=== PATIENT | female | born 1965 | race African-American/Black ===

== ENCOUNTER 2021-04-12 05:52 | Inpatient (IN) | payer OTHER, MEDICAID ==
[2021-04-12] MEDS ORDERED: Adenosine 6 MG/2 ML VIAL ONE (06:15)
[2021-04-12 06:23] LABS: Actual Bicarbonate (HCO3a) 19.7 mEq/L (22-28); Base Excess (BEa) -6.9 mEq/L (-2.0 to +3.0); CO2 Tension 44.4 mmHg (35.0-45.0); Calcium, Ionized (arterial) 1.09 mmol/L (1.12-1.30); Carboxyhemoglobin (COHb) 0.3 gm% (0.0-3.0); O2 Tension (PaO2), arterial 77.3 mmHg (80.0-100.0); Potassium - ABG Lab 3.6 mmol/L (3.70-5.30); Puncture Site RRA; pH, Arterial 7.27 (7.35-7.45)
[2021-04-12 06:33] LABS: ALT (SGPT) 22 U/L (8-55); AST (SGOT) 25 U/L (5-34); Alkaline Phosphatase 79 U/L (40-110); Anion Gap 14 mmol/L (10-20); BUN (Urea Nitrogen) 16 mg/dL (9.8-20.1); Bilirubin, Total 1.4 mg/dL (0.2-1.2); Calc. Creatinine Clearance 0 mL/min (70-130); Calcium 7.5 mg/dL (7.8-10.44); Carbon Dioxide 18 mmol/L (22-29); Chloride 115 mmol/L (98-107); Globulin 3.5 g/dL (2.4-3.5); Glucose 121 mg/dL (70-105); Potassium 3.9 mmol/L (3.5-5.1); Protein, Total 5.5 g/dL (6.0-8.3); Sodium 143 mmol/L (136-145)
[2021-04-12 06:44] LABS: Hemoglobin 8.5 g/dL (12.0-15.5); Mean Corpuscular HGB CONC 35.1 g/dL (32.0-36.0); Mean Corpuscular Volume 76.8 fl (81.6-98.3); Platelet Count 144 10x3/uL (150-450); Red Blood Cell (RBC) Count 3.15 10x6/uL (3.90-5.03)
[2021-04-12 06:55] LABS: CKMB 1.1 ng/mL (0-6.6)
[2021-04-12] MEDS ORDERED: Midazolam In 0.9 % NaCl/PF 100 ML IVPB PRN (07:09)
[2021-04-12] MEDS ORDERED: fentaNYL Citrate/PF 50 MCG/ML (20ML VIAL) ONE (07:20)
[2021-04-12] MEDS ORDERED: Midazolam HCl 2 mg/2 ml Vial ONE (07:26)
[2021-04-12] MEDS ORDERED: Fentanyl 100 MCG/2 ML VIAL ONE (07:27)
[2021-04-12] MEDS ORDERED: fentaNYL Citrate-0.9 % NaCl/PF 100 ML IVPB SCH (07:30)
[2021-04-12] MEDS ORDERED: EPINEPHrine 1 MG/ML AMP ONE (07:42)
[2021-04-12] MEDS ORDERED: EPINEPHrine 1 MG/10 ML Abboject SYRINGE ONE (07:43)
[2021-04-12] MEDS ORDERED: Norepinephrine 8 MG/0.9% NS 250 ML ONE (07:43)
[2021-04-12 07:46] LABS: Band 11 % (5-11); Lymphocytes 1 % (21-51); Monocytes 4 % (0-10); Myelocyte 1 % (0-0)
[2021-04-12 07:52] LABS: Metamyelocyte 2 % (0-0); Neutrophil 81 % (42-75)
[2021-04-12 08:01] LABS: Anisocytosis MODERATE=16-30 cells (100X) (0-5/hpf)
[2021-04-12 08:02] LABS: Hypochromia SLIGHT = 6-15 cells (100X) (0-5/hpf); Macrocytosis SLIGHT = 6-15 cells (100X) (0-5/hpf); Microcytosis SLIGHT = 6-15 cells (100X) (0-5/hpf); Ovalocytes SLIGHT = 2-5 cells (100X) (0-1/hpf); Poikilocytosis SLIGHT = 6-15 cells (100X) (0-5/hpf); Target Cells MODERATE= 6-15 cells (100X) (0-1/hpf)
[2021-04-12 08:03] LABS: Polychromasia SLIGHT = 2-3 cells (100X) (0-2/hpf)
[2021-04-12 08:04] LABS: Burr Cells SLIGHT = 2-5 cells (100X) (0-1/hpf); Large Platelets SLIGHT; Platelet Morphology Comment Appears Adequate; Toxic Granulation SLIGHT
[2021-04-12 08:06] LABS: Vacuoles SLIGHT
[2021-04-12 08:07] LABS: MDiff Complete? YES
[2021-04-12] MEDS ORDERED: Hydrocerin (Eucerin) Cream 120 gm Jar TOP PRN (08:24)
[2021-04-12] MEDS ORDERED: Ondansetron PF 4 MG/2 ML Vial IVP PRN (08:24)
[2021-04-12] MEDS ORDERED: Electrolyte Replacement Protocol 1 EACH IVPB ONE (08:24)
[2021-04-12] MEDS ORDERED: Artificial Tear Sol 15 ML BOT EA EYE PRN (08:24)
[2021-04-12] MEDS ORDERED: Acetaminophen 325 MG TAB PER TUBE PRN (08:24)
[2021-04-12] MEDS ORDERED: Loperamide HCl 2 MG CAP PER TUBE PRN (08:24)
[2021-04-12] MEDS ORDERED: Senokot S 8.6-50 MG TAB PER TUBE PRN (08:24)
[2021-04-12] MEDS ORDERED: Bisacodyl 10 MG SUPP PR PRN (08:24)
[2021-04-12] MEDS ORDERED: Norepinephrine 8 MG/0.9% NS 250 ML IVPB PRN (08:24)
[2021-04-12] MEDS ORDERED: Acetaminophen 650 MG Suppository PR PRN (08:24)
[2021-04-12] MEDS ORDERED: Ventilator Sedation Protocol 1 EACH FS PRN (08:30)
[2021-04-12 08:31] LABS: Actual Bicarbonate (HCO3a) 16.3 mEq/L (22-28); Base Excess (BEa) -9.7 mEq/L (-2.0 to +3.0); CO2 Tension 36.5 mmHg (35.0-45.0); Calcium, Ionized (arterial) 1.06 mmol/L (1.12-1.30); Carboxyhemoglobin (COHb) 0.3 gm% (0.0-3.0); Hemoglobin (Hb) 7.9 g/dL (12.0-16.0); Potassium - ABG Lab 3.5 mmol/L (3.70-5.30); Puncture Site LRA; pH, Arterial 7.27 (7.35-7.45)
[2021-04-12 08:33] LABS: ALV-art Gradient 483.375 mmHg (0-20)
[2021-04-12] MEDS ORDERED: Morphine 2 MG/ML VIAL SLOW IVP PRN (09:00)
[2021-04-12] MEDS ORDERED: Lorazepam 2 MG/ML VIAL SLOW IVP PRN (09:00)
[2021-04-12] MEDS ORDERED: Heparin 5,000 UNITS/ML VIAL SC SCH (09:00)
[2021-04-12] MEDS ORDERED: Propofol BOLUS 1,000 MG/100 ML VIAL IV PRN (09:00)
[2021-04-12] MEDS ORDERED: Fentanyl BOLUS 250 ML IVPB PRN (09:00)
[2021-04-12] MEDS ORDERED: DISCONTINUE PREVIOUS NARCOTIC PAIN MEDICATIONS AND BENZODIAZEPINES FS SCH (09:00)
[2021-04-12] MEDS ORDERED: Enoxaparin Sodium 40 MG/0.4 ML SYRINGE SC SCH (09:00)
[2021-04-12] MEDS ORDERED: Morphine 4 MG/ML VIAL SLOW IVP PRN (09:04)
[2021-04-12] MEDS ORDERED: Electrolyte Replacement Protocol FS PRN (09:15)
[2021-04-12] MEDS ORDERED: Meropenem 1 GM in Sodium Chloride 0.9% 100 ML IVPB SCH (09:30)
[2021-04-12] MEDS: Propofol 1,000 MG/100 ML VIAL IV PRN ×2 (09:32→19:23)
[2021-04-12] MEDS: Sodium Chloride 0.45% 1,000 ML IV SCH ×2 (09:32→21:12)
[2021-04-12] MEDS: Pantoprazole 40 MG VIAL IVP SCH (09:34)
[2021-04-12 10:07] LABS: Lactic Acid 2.2 mmol/L (0.5-2.2)
[2021-04-12] MEDS ORDERED: Enoxaparin Sodium 30 MG/0.3 ML SYRINGE SC SCH (10:15)
[2021-04-12 10:17] LABS: Troponin I 0.145 ng/mL (< 0.028)
[2021-04-12] MEDS ORDERED: Prevnar 13-Val Conj/PF 0.5 ML SYRINGE IM ONE (10:45)
[2021-04-12] MEDS ORDERED: FLU VACC QS2021-22(6MOS UP)/PF 60 MCG/0.5 ML SYRINGE IM ONE (10:45)
[2021-04-12] MEDS ORDERED: Vancomycin HCl 1.25 GM, Admixture Fee 1 EACH in Sodium Chloride 0.9% 250 ML 250 ML IVPB SCH (11:00)
[2021-04-12] MEDS: fentaNYL Citrate-0.9 % NaCl/PF 100 ML IVPB SCH (17:18)
[2021-04-12] MEDS: Meropenem 500 MG in Sodium Chloride 0.9% 100 ML IVPB SCH (17:49)
[2021-04-12] MEDS: Budesonide 0.5 MG/2 ML NEB NEB SCH (19:05)
[2021-04-12] MEDS: Vasopressin 20 UNIT, Admixture Fee 1 EACH in Sodium Chloride 0.9% 50 ML IV PRN (21:27)
[2021-04-12] MEDS: Norepinephrine 8 MG/0.9% NS 250 ML IVPB PRN (21:30)
[2021-04-13] MEDS: Vasopressin 20 UNIT, Admixture Fee 1 EACH in Sodium Chloride 0.9% 50 ML IV PRN ×2 (02:15→11:58)
[2021-04-13] MEDS: Sodium Chloride 0.45% 1,000 ML IV SCH (03:11)
[2021-04-13 03:55] LABS: Mean Corpuscular HGB CONC 35.6 g/dL (32.0-36.0); Mean Corpuscular Hemoglobin 27.1 pg (27.0-33.0); Mean Corpuscular Volume 76.3 fl (81.6-98.3); Mean Platelet Volume 11.3 fl (7.4-10.4); Platelet Count 139 10x3/uL (150-450); RBC Distribution Width 18.7 % (11.5-14.5); Red Blood Cell (RBC) Count 2.95 10x6/uL (3.90-5.03); White Blood Cell (WBC) Count 26.5 10x3/uL (3.5-10.5)
[2021-04-13 04:00] LABS: Lactic Acid 3.2 mmol/L (0.5-2.2)
[2021-04-13 04:04] LABS: ALT (SGPT) 17 U/L (8-55); AST (SGOT) 30 U/L (5-34); Albumin 1.7 g/dL (3.5-5.0); Alkaline Phosphatase 65 U/L (40-110); Anion Gap 13 mmol/L (10-20); BUN (Urea Nitrogen) 18 mg/dL (9.8-20.1); Calc. Creatinine Clearance 30 mL/min (70-130); Calcium 7.1 mg/dL (7.8-10.44); Carbon Dioxide 16 mmol/L (22-29); Chloride 113 mmol/L (98-107); Globulin 3.3 g/dL (2.4-3.5); Glucose 91 mg/dL (70-105); Magnesium 1.4 mg/dL (1.6-2.6); Phosphorus 3.7 mg/dL (2.3-4.7); Potassium 3.8 mmol/L (3.5-5.1); Sodium 138 mmol/L (136-145)
[2021-04-13] MEDS ORDERED: Vancomycin 1 GM in Sodium Chloride 0.9% 250 ML 250 ML IVPB PRN (04:29)
[2021-04-13 04:30] LABS: Band 12 % (5-11); Lymphocytes 6 % (21-51); Monocytes 6 % (0-10); Nucleated RBC 1 % (0)
[2021-04-13 04:32] LABS: Anisocytosis SLIGHT = 6-15 cells (100X) (0-5/hpf); Hypochromia SLIGHT = 6-15 cells (100X) (0-5/hpf); Macrocytosis SLIGHT = 6-15 cells (100X) (0-5/hpf); Microcytosis SLIGHT = 6-15 cells (100X) (0-5/hpf); Neutrophil 76 % (42-75); Poikilocytosis SLIGHT = 6-15 cells (100X) (0-5/hpf); Target Cells MODERATE= 6-15 cells (100X) (0-1/hpf)
[2021-04-13 04:34] LABS: Burr Cells SLIGHT = 2-5 cells (100X) (0-1/hpf); Crenated RBC SLIGHT = 1-5 cells (100X) (None Seen); Ovalocytes SLIGHT = 2-5 cells (100X) (0-1/hpf)
[2021-04-13 04:35] LABS: Large Platelets SLIGHT; Platelet Clumps SLIGHT; Platelet Morphology Comment Appears Adequate; Polychromasia SLIGHT = 2-3 cells (100X) (0-2/hpf)
[2021-04-13 04:37] LABS: MDiff Complete? YES
[2021-04-13] MEDS: Magnesium 2 GM/50 ML 2 GM in Premix Bag 1 BAG IVPB SCH ×3 (05:10→17:57)
[2021-04-13] MEDS: Meropenem 500 MG in Sodium Chloride 0.9% 100 ML IVPB SCH ×2 (05:10→17:53)
[2021-04-13] MEDS ORDERED: Rocuronium Bromide 10 MG/ML (10ML VIAL) ONE (06:00)
[2021-04-13] MEDS: Norepinephrine 8 MG/0.9% NS 250 ML IVPB PRN ×2 (06:30→17:54)
[2021-04-13] MEDS: Budesonide 0.5 MG/2 ML NEB NEB SCH ×2 (06:41→19:05)
[2021-04-13 07:09] LABS: Base Excess (BEa) -9.5 mEq/L (-2.0 to +3.0); Calcium, Ionized (arterial) 1.06 mmol/L (1.12-1.30); Carboxyhemoglobin (COHb) 0.5 gm% (0.0-3.0); Hemoglobin (Hb) 8.1 g/dL (12.0-16.0); O2 Tension (PaO2), arterial 47.4 mmHg (80.0-100.0); Potassium - ABG Lab 3.6 mmol/L (3.70-5.30); Puncture Site LBA
[2021-04-13] MEDS ORDERED: Enoxaparin Sodium 30 MG/0.3 ML SYRINGE SC SCH (09:00)
[2021-04-13 09:08] LABS: Actual Bicarbonate (HCO3a) 19.6 mEq/L (22-28); Base Excess (BEa) -8.7 mEq/L (-2.0 to +3.0); CO2 Tension 54.8 mmHg (35.0-45.0); Calcium, Ionized (arterial) 1.09 mmol/L (1.12-1.30); Carboxyhemoglobin (COHb) 0.3 gm% (0.0-3.0); Hemoglobin (Hb) 9.3 g/dL (12.0-16.0); Potassium - ABG Lab 3.6 mmol/L (3.70-5.30); Puncture Site LRA; pH, Arterial 7.17 (7.35-7.45)
[2021-04-13] MEDS: Pantoprazole 40 MG VIAL IVP SCH (09:18)
[2021-04-13] MEDS ORDERED: Dextrose 50% Abboject 50 ML SYRINGE ONE (10:02)
[2021-04-13] MEDS ORDERED: Dextrose 50% Abboject 50 ML SYRINGE SLOW IVP PRN (10:44)
[2021-04-13] MEDS ORDERED: HumaLOG 300 UNITS/3 ML VIAL SC PRN (10:44)
[2021-04-13] MEDS ORDERED: Dextrose 5% in Water 1,000 ML IV PRN (10:44)
[2021-04-13] MEDS: Dextrose 5 % And 0.9 % NaCl 1,000 ML IV SCH ×2 (10:50→18:48)
[2021-04-13] MEDS ORDERED: Vecuronium 10 MG VIAL IV SCH (11:00)
[2021-04-13] MEDS: Hydrocortisone Sod Succ/PF 100 mg/2 ml Vial IVP SCH ×2 (11:19→17:54)
[2021-04-13 12:45] LABS: Actual Bicarbonate (HCO3a) 16.4 mEq/L (22-28); Base Excess (BEa) -9.8 mEq/L (-2.0 to +3.0); CO2 Tension 37.6 mmHg (35.0-45.0); Calcium, Ionized (arterial) 1.08 mmol/L (1.12-1.30); Carboxyhemoglobin (COHb) 0.5 gm% (0.0-3.0); Hemoglobin (Hb) 7.5 g/dL (12.0-16.0); O2 Tension (PaO2), arterial 41.7 mmHg (80.0-100.0); Potassium - ABG Lab 3.5 mmol/L (3.70-5.30); Puncture Site LBA; pH, Arterial 7.26 (7.35-7.45)
[2021-04-13] MEDS ORDERED: Vecuronium Bromide 50 MG in Sodium Chloride 0.9% 250 ML 250 ML IV SCH (13:15)
[2021-04-13] MEDS: Vecuronium Bromide 50 MG, Admixture Fee 1 EACH in Sodium Chloride 0.9% 250 ML 250 ML IV SCH (13:37)
[2021-04-13] MEDS: Heparin 5,000 UNITS/ML VIAL SC SCH ×2 (14:17→21:41)
[2021-04-13 14:45] LABS: Vancomycin, Random 20.1 ug/mL (See Comment)
[2021-04-13] MEDS: Propofol 1,000 MG/100 ML VIAL IV PRN ×2 (17:53→22:30)
[2021-04-13] MEDS ORDERED: Tacrolimus 0.5 MG CAP PO SCH (18:00)
[2021-04-13] MEDS: fentaNYL Citrate-0.9 % NaCl/PF 100 ML IVPB SCH (19:01)
[2021-04-13] MEDS: Pyridostigmine Bromide IR 60 MG TAB PO SCH (21:40)
[2021-04-13] MEDS: Mycophenolate 250 MG CAP PO SCH (21:40)
[2021-04-13 21:49] VITALS: TEMP 99.5
[2021-04-14 03:20] LABS: Hemoglobin 7.4 g/dL (12.0-15.5); Mean Corpuscular HGB CONC 35.9 g/dL (32.0-36.0); Mean Corpuscular Volume 75.2 fl (81.6-98.3); Red Blood Cell (RBC) Count 2.74 10x6/uL (3.90-5.03); White Blood Cell (WBC) Count 29.8 10x3/uL (3.5-10.5)
[2021-04-14 03:21] LABS: Platelet Count 132 10x3/uL (150-450)
[2021-04-14 03:34] LABS: ALT (SGPT) 11 U/L (8-55); AST (SGOT) 30 U/L (5-34); Albumin 1.6 g/dL (3.5-5.0); Alkaline Phosphatase 64 U/L (40-110); Anion Gap 11 mmol/L (10-20); BUN (Urea Nitrogen) 21 mg/dL (9.8-20.1); Bilirubin, Total 1.1 mg/dL (0.2-1.2); Calc. Creatinine Clearance 27 mL/min (70-130); Calcium 7.3 mg/dL (7.8-10.44); Carbon Dioxide 14 mmol/L (22-29); Chloride 114 mmol/L (98-107); Globulin 3.2 g/dL (2.4-3.5); Glucose 274 mg/dL (70-105); Magnesium 2.2 mg/dL (1.6-2.6); Potassium 3.7 mmol/L (3.5-5.1); Protein, Total 4.8 g/dL (6.0-8.3); Sodium 135 mmol/L (136-145)
[2021-04-14 03:36] LABS: Band 16 % (5-11); Lymphocytes 2 % (21-51); Monocytes 2 % (0-10); Nucleated RBC 2 % (0)
[2021-04-14 03:37] LABS: Macrocytosis SLIGHT = 6-15 cells (100X) (0-5/hpf); Microcytosis SLIGHT = 6-15 cells (100X) (0-5/hpf); Neutrophil 80 % (42-75); Poikilocytosis SLIGHT = 6-15 cells (100X) (0-5/hpf)
[2021-04-14 03:38] LABS: Hypochromia MODERATE=16-30 cells (100X) (0-5/hpf); Target Cells MODERATE= 6-15 cells (100X) (0-1/hpf)
[2021-04-14 03:39] LABS: Anisocytosis MODERATE=16-30 cells (100X) (0-5/hpf); Burr Cells SLIGHT = 2-5 cells (100X) (0-1/hpf); Ovalocytes SLIGHT = 2-5 cells (100X) (0-1/hpf); Polychromasia SLIGHT = 2-3 cells (100X) (0-2/hpf)
[2021-04-14 03:40] LABS: Large Platelets MODERATE; Platelet Clumps SLIGHT; Platelet Morphology Comment Appears Decreased; Vacuoles SLIGHT
[2021-04-14 03:41] LABS: MDiff Complete? YES
[2021-04-14] MEDS: Hydrocortisone Sod Succ/PF 100 mg/2 ml Vial IVP SCH ×3 (04:39→18:01)
[2021-04-14] MEDS: Norepinephrine 8 MG/0.9% NS 250 ML IVPB PRN ×2 (05:28→18:01)
[2021-04-14] MEDS: Dextrose 5 % And 0.9 % NaCl 1,000 ML IV SCH (06:03)
[2021-04-14] MEDS: Meropenem 500 MG in Sodium Chloride 0.9% 100 ML IVPB SCH ×2 (06:03→18:03)
[2021-04-14] MEDS: Pyridostigmine Bromide IR 60 MG TAB PO SCH ×3 (06:04→22:57)
[2021-04-14] MEDS: Budesonide 0.5 MG/2 ML NEB NEB SCH ×2 (07:15→19:40)
[2021-04-14] MEDS: Heparin 5,000 UNITS/ML VIAL SC SCH ×3 (08:25→20:48)
[2021-04-14] MEDS: Mycophenolate 250 MG CAP PO SCH (08:26)
[2021-04-14 08:34] LABS: Actual Bicarbonate (HCO3a) 14.3 mEq/L (22-28); Base Excess (BEa) -12.6 mEq/L (-2.0 to +3.0); CO2 Tension 36.7 mmHg (35.0-45.0); Calcium, Ionized (arterial) 1.17 mmol/L (1.12-1.30); Carboxyhemoglobin (COHb) 0.3 gm% (0.0-3.0); Hemoglobin (Hb) 8.3 g/dL (12.0-16.0); Potassium - ABG Lab 3.5 mmol/L (3.70-5.30); Puncture Site LBA; pH, Arterial 7.21 (7.35-7.45)
[2021-04-14 08:38] LABS: ALV-art Gradient 466.525 mmHg (0-20)
[2021-04-14] MEDS ORDERED: Tacrolimus 1 MG CAP PO SCH (09:00)
[2021-04-14] MEDS: Albumin 25% 25 GM/100 ML BOT IVPB SCH ×3 (09:59→20:48)
[2021-04-14] MEDS: Vasopressin 20 UNIT, Admixture Fee 1 EACH in Sodium Chloride 0.9% 50 ML IV PRN ×2 (10:28→18:02)
[2021-04-14] MEDS ORDERED: Sodium Bicarbonate 75 MEQ, Admixture Fee 1 EACH in Dextrose 5% in Water 1,000 ML IV SCH (11:00)
[2021-04-14] MEDS ORDERED: Sodium Bicarb 50 MEQ/50 ML Abboject 8.4% SYRINGE IVP SCH (11:30)
[2021-04-14] MEDS: Sodium Bicarb 50 MEQ/50 ML VIAL IVP SCH ×3 (11:38→13:39)
[2021-04-14 12:33] LABS: ALV-art Gradient 478.725 mmHg (0-20); Actual Bicarbonate (HCO3a) 20.5 mEq/L (22-28); Base Excess (BEa) -4.9 mEq/L (-2.0 to +3.0); CO2 Tension 39.5 mmHg (35.0-45.0); Calcium, Ionized (arterial) 1.08 mmol/L (1.12-1.30); Carboxyhemoglobin (COHb) 0.8 gm% (0.0-3.0); Hemoglobin (Hb) 6.8 g/dL (12.0-16.0); O2 Tension (PaO2), arterial 42.3 mmHg (80.0-100.0); Potassium - ABG Lab 3.1 mmol/L (3.70-5.30); Puncture Site LBA; pH, Arterial 7.33 (7.35-7.45)
[2021-04-14 12:45] LABS: Vancomycin, Random 14.7 ug/mL (See Comment)
[2021-04-14] MEDS: fentaNYL Citrate-0.9 % NaCl/PF 100 ML IVPB SCH (13:20)
[2021-04-14] MEDS ORDERED: Vancomycin HCl 750 MG in Sodium Chloride 0.9% 250 ML 250 ML IVPB SCH (14:00)
[2021-04-14] MEDS ORDERED: Micafungin 100 MG in Sodium Chloride 0.9% 100 ML IVPB SCH (14:00)
[2021-04-14] MEDS: Propofol 1,000 MG/100 ML VIAL IV PRN (18:01)
[2021-04-14 22:50] LABS: SARS-CoV-2 NAA Rapid Test Not Detected (NotDetected)
[2021-04-14 22:56] LABS: Hep B Surf Ag Non-Reactive S/CO (NonReactive)
[2021-04-14 23:05] LABS: HBSAg Index 0.24 S/CO (0-0.99)
[2021-04-15] MEDS: fentaNYL Citrate-0.9 % NaCl/PF 100 ML IVPB SCH (02:31)
[2021-04-15] MEDS: Propofol 1,000 MG/100 ML VIAL IV PRN (02:31)
[2021-04-15] MEDS: Vecuronium Bromide 50 MG, Admixture Fee 1 EACH in Sodium Chloride 0.9% 250 ML 250 ML IV SCH (03:40)
[2021-04-15] MEDS: Hydrocortisone Sod Succ/PF 100 mg/2 ml Vial IVP SCH (03:41)
[2021-04-15] MEDS: Albumin 25% 25 GM/100 ML BOT IVPB SCH (03:41)
[2021-04-15 04:13] LABS: ALT (SGPT) 10 U/L (8-55); AST (SGOT) 29 U/L (5-34); Albumin 1.7 g/dL (3.5-5.0); Alkaline Phosphatase 60 U/L (40-110); Anion Gap 10 mmol/L (10-20); BUN (Urea Nitrogen) 27 mg/dL (9.8-20.1); Bilirubin, Total 1.1 mg/dL (0.2-1.2); Calc. Creatinine Clearance 26 mL/min (70-130); Calcium 7.5 mg/dL (7.8-10.44); Carbon Dioxide 18 mmol/L (22-29); Chloride 113 mmol/L (98-107); Glucose 107 mg/dL (70-105); Potassium 3.3 mmol/L (3.5-5.1); Protein, Total 4.7 g/dL (6.0-8.3); Sodium 138 mmol/L (136-145)
[2021-04-15 04:14] LABS: Hemoglobin 6.9 g/dL (12.0-15.5); Mean Corpuscular HGB CONC 37.3 g/dL (32.0-36.0); Mean Corpuscular Hemoglobin 26.8 pg (27.0-33.0); Mean Platelet Volume 11.4 fl (7.4-10.4); Platelet Count 95 10x3/uL (150-450); RBC Distribution Width 18.3 % (11.5-14.5); Red Blood Cell (RBC) Count 2.57 10x6/uL (3.90-5.03); White Blood Cell (WBC) Count 33.5 10x3/uL (3.5-10.5)
[2021-04-15 04:37] LABS: Band 26 % (5-11); Nucleated RBC 1 % (0)
[2021-04-15 04:38] LABS: Lymphocytes 2 % (21-51); Monocytes 2 % (0-10)
[2021-04-15 04:39] LABS: Neutrophil 69 % (42-75); Reactive Lymphocytes 1 % (0-10)
[2021-04-15 04:40] LABS: Anisocytosis MODERATE=16-30 cells (100X) (0-5/hpf)
[2021-04-15 04:41] LABS: Hypochromia MODERATE=16-30 cells (100X) (0-5/hpf); Macrocytosis SLIGHT = 6-15 cells (100X) (0-5/hpf); Microcytosis MODERATE=15-30 cells (100X) (0-5/hpf); Ovalocytes SLIGHT = 2-5 cells (100X) (0-1/hpf); Poikilocytosis SLIGHT = 6-15 cells (100X) (0-5/hpf); Polychromasia SLIGHT = 2-3 cells (100X) (0-2/hpf)
[2021-04-15 04:42] LABS: Burr Cells SLIGHT = 2-5 cells (100X) (0-1/hpf); Crenated RBC SLIGHT = 1-5 cells (100X) (None Seen); Target Cells MODERATE= 6-15 cells (100X) (0-1/hpf)
[2021-04-15 04:43] LABS: Actual Bicarbonate (HCO3a) 18.8 mEq/L (22-28); Base Excess (BEa) -6.6 mEq/L (-2.0 to +3.0); CO2 Tension 36.6 mmHg (35.0-45.0); Calcium, Ionized (arterial) 1.12 mmol/L (1.12-1.30); Carboxyhemoglobin (COHb) 1.1 gm% (0.0-3.0); Hemoglobin (Hb) 6.9 g/dL (12.0-16.0); O2 Tension (PaO2), arterial 59.1 mmHg (80.0-100.0); Potassium - ABG Lab 3.2 mmol/L (3.70-5.30); Puncture Site LRA; pH, Arterial 7.33 (7.35-7.45)
[2021-04-15 04:44] LABS: Large Platelets SLIGHT; Platelet Morphology Comment Appears Decreased
[2021-04-15 04:45] LABS: Toxic Granulation SLIGHT; Vacuoles SLIGHT
[2021-04-15 04:46] LABS: Platelet Clumps SLIGHT
[2021-04-15 04:47] LABS: Helmet Cells SLIGHT = 2-5 cells (100X) (0-1/hpf); Schistocytes SLIGHT = 2-5 cells (100X) (0-1/hpf)
[2021-04-15 04:48] LABS: MDiff Complete? YES
[2021-04-15] MEDS: Pyridostigmine Bromide IR 60 MG TAB PO SCH (05:51)
[2021-04-15] MEDS: Meropenem 500 MG in Sodium Chloride 0.9% 100 ML IVPB SCH (05:53)
[2021-04-15 06:30] VITALS: BMI 28.8
[2021-04-15] MEDS: Budesonide 0.5 MG/2 ML NEB NEB SCH (07:25)
[2021-04-15 12:12] VITALS: BP 98/53
[2021-04-15 20:12] LABS: SARS-CoV-2 IgG Spike Ab Interp Reactive (NonReactive); SARS-CoV-2 IgG Spike Conc/Indx 15884.4 AU/mL (0.00-50.0)
== END 2021-04-15 10:15 | disposition short-term general hospital (02) | DRG 871 ==
LOC: CSHERS 05:52 → CSHICU 08:51
PROVIDERS: ADMIT Internal Medicine; ATTEND Family Medicine
PROC: 02HV33Z Insertion of Infusion Device into Superior Vena Cava, Percutaneous Approach (ICD-10-PCS; principal; 2021-04-12)
PROC: 5A1945Z Respiratory Ventilation, 24-96 Consecutive Hours (ICD-10-PCS; 2021-04-12)
PROC: 0BH18EZ Insertion of Endotracheal Airway into Trachea, Via Natural or Artificial Opening Endoscopic (ICD-10-PCS; 2021-04-12)
PROC: 3E033XZ Introduction of Vasopressor into Peripheral Vein, Percutaneous Approach (ICD-10-PCS; 2021-04-12)
PROC: 5A09357 Assistance with Respiratory Ventilation, Less than 24 Consecutive Hours, Continuous Positive Airway Pressure (ICD-10-PCS; 2021-04-15)
DX: A41.9 Sepsis, unspecified organism (principal); J18.9 Pneumonia, unspecified organism; N18.6 End stage renal disease; I21.A1 Myocardial infarction type 2; R65.21 Severe sepsis with septic shock; J80 Acute respiratory distress syndrome; E87.2 Acidosis; N17.9 Acute kidney failure, unspecified; D84.9 Immunodeficiency, unspecified; T86.19 Other complication of kidney transplant; K21.9 Gastro-esophageal reflux disease without esophagitis; G43.909 Migraine, unspecified, not intractable, without status migrainosus; I50.9 Heart failure, unspecified; M32.9 Systemic lupus erythematosus, unspecified; F41.9 Anxiety disorder, unspecified; F32.A Depression, unspecified; D63.8 Anemia in other chronic diseases classified elsewhere; Y83.8 Other surgical procedures as the cause of abnormal reaction of the patient, or of later complication, without mention of misadventure at the time of the procedure; G70.00 Myasthenia gravis without (acute) exacerbation; Z20.822 Contact with and (suspected) exposure to COVID-19; Z98.51 Tubal ligation status; Z88.1 Allergy status to other antibiotic agents; Z88.8 Allergy status to other drugs, medicaments and biological substances; Z79.82 Long term (current) use of aspirin; Z86.16 Personal history of COVID-19; Z86.69 Personal history of other diseases of the nervous system and sense organs
CPT/HCPCS: 0240U; 31500; 36415; 36416; 36556; 36600; 51702; 71045; 80053; 80202; 82533; 82553; 82805; 83605; 83735; 84100; 84443; 85007; 85027; 86769; 87070; 87205; 87340; 93005; 94003; 94640; 94660; 94760; 96365; 96375; C9113; J0153; J0171; J1644; J1650; J1720; J1815; J2185; J2248; J2250; J2704; J3010; J3370; J3475; J3490; J7042; J7050; J7070; J7507; J7517; J7620; J7626; P9047